=== PATIENT | female | born 1965 | race Two or more races ===

== ENCOUNTER → 2023-12-09 | Outpatient (REF) | payer OTHER | LOC: M PLALAB 15:45 | PROVIDERS: ATTEND Obstetrics & Gynecology | DX: Z12.4 Encounter for screening for malignant neoplasm of cervix (principal); Z53.9 Procedure and treatment not carried out, unspecified reason ==

== ENCOUNTER → 2023-12-09 | Outpatient (REF) | payer OTHER ==
[2023-12-11 15:18] LABS: HPV APTIMA Not Detected (Not Detected)
== END ==
LOC: M LAB REF 22:21 → M SFHCWAGY 22:21
PROVIDERS: ATTEND Obstetrics & Gynecology
DX: Z12.4 Encounter for screening for malignant neoplasm of cervix (principal)
CPT/HCPCS: 87624; G0123